=== PATIENT | male | born 1960 | race Caucasian/White ===

== ENCOUNTER → 2020-05-20 13:54 | Outpatient (CLI) | payer OTHER, SELFPAY ==
--- NOTE | 2020-05-20 | DI.MG.S_ITS ---
MALE BILATERAL DIGITAL DIAGNOSTIC MAMMOGRAM 3D/2D: 05/20/2020 CLINICAL: Mastalgia. No prior exams were available for comparison. There is asymmetric mild gynecomastia in the left breast. No significant masses, calcifications, or other findings are seen in either breast. Specifically, no other finding to correspond to the patient's 12:00 palpable abnormality. IMPRESSION: INCOMPLETE: NEEDS ADDITIONAL IMAGING EVALUATION There is mildly asymmetric left breast gynecomastia. No other abnormality seen in the left breast to correspond with the palpable abnormality and pain at 12 o'clock. Ultrasound recommended for verification. This was performed immediately following this exam. This exam was interpreted at Station ID: [id number]. NOTE: For mammograms, a report in lay terms will be sent to the patient. Approximately 15% of breast malignancies will not be visualized mammographically. In the management of a palpable breast mass, a negative mammogram must not discourage biopsy of a clinically suspicious lesion. Electronically Signed By: Eliza bull/:05/20/2020 14:48:36 ACR BI-RADS Category 0: Incomplete [id number]
--- NOTE | 2020-05-20 | DI.US.S_ITS ---
ULTRASOUND OF LEFT BREAST: 05/20/2020 CLINICAL: Palpable left breast lump. Comparison is made to exam dated: 05/20/2020 [facility]. Color flow and real-time ultrasound of the left breast were performed. Alatorre scale images of the real-time examination were reviewed. There is gynecomastia in the left breast in the sub-areolar depth that correlates with palpable area. No other suspicious sonographic findings. IMPRESSION: BENIGN There is no sonographic evidence of malignancy. The area of gynecomastia on ultrasound correlates with palpable area and mammographic finding. Clinical follow up only. Findings and recommendations were conveyed to the patient at time of exam. This exam was interpreted at Station ID: [id number]. Electronically Signed By: Eliza bull/:05/20/2020 15:03:40 copy to: Shayna Granados copy to: Nelda Sue letter sent: Normal Exam Ultrasound BI-RADS: 2 Benign
== END ==
PROVIDERS: PCP Physician Assistant Medical; Referring Provider Family Medicine; Visit Provider Family Medicine
DX: N64.4 Mastodynia (principal); N62 Hypertrophy of breast
CPT/HCPCS: 76642; 77066; G0279

== ENCOUNTER 2020-11-19 12:07 | Emergency (ER) | payer OTHER, SELFPAY ==
[2020-11-19] VITALS (8 sets, daily range): BP systolic 103–118; BP diastolic 65–70; PULSE 63–68; RESP 18–23; TEMP 36.5; O2SAT 93–100; BMI 29.2
--- NOTE | 2020-11-19 12:19 | DI.RAD.S_ITS ---
PROCEDURE: XR PELVIS 1-2V INDICATIONS: pain fall TECHNIQUE: 1 view(s) of the pelvis acquired. COMPARISON: None. FINDINGS: Bones: There is a displaced fracture along the medial acetabulum extending to the superior left pubic ramus. Small lucencies are noted along the medial aspect of the humeral head. Soft tissues: Visualized bowel gas pattern is normal. No suspicious soft tissue calcifications. IMPRESSION: 1. Displaced medial acetabular fracture extending to the left superior pubic ramus. 2. Ill-defined horizontal lucencies at the medial femoral head suspicious for fracture. CT is recommended for further evaluation. Dictated by: Dotty Peña M.D. on 11/19/2020 at 12:46 Approved by: Dotty Peña M.D. on 11/19/2020 at 12:47
--- NOTE | 2020-11-19 12:21 | ED.LOWEXIN ---
HPI - Extremity Injury (Lower) General Chief Complaint: Fall Stated Complaint: Fall while rollerblading,left hip pain Time Seen by Provider: 11/19/20 12:19 Source: EMS Mode of arrival: EMS Limitations: no limitations History of Present Illness HPI Narrative: Patient is a 61-year-old male with left hip pain after rollerblading accident. He said he got new rollerblades and fell down landed on the left. Quite painful to move. He was wearing helmet he did not hit his head no neck pain. MD complaint: hip injury Onset (ago): minute(s) Related Data Home Medications Medication Instructions Recorded Confirmed omeprazole 20 mg PO DAILY 11/19/20 11/19/20 tadalafil [Cialis] 20 mg PO DAILY PRN 11/19/20 11/19/20 tocilizumab [Actemra ACTPen] 162 mg SUBCUT QWEEK 11/19/20 11/19/20 Allergies Allergy/AdvReac Type Severity Reaction Status Date / Time No Known Drug Allergies Allergy Verified 11/19/20 12:35 Review of Systems Review of Systems Narrative: GENERAL: Denies chills,fever HEENT: Denies throat pain RESPIRATORY: Denies dyspnea, cough, wheezing CARDIOVASCULAR: Denies chest pain, palpitations GASTROINTESTINAL: Denies nausea, vomiting MUSCULOSKELETAL: See HPI SKIN: No rash, no laceration, no pruritus NEUROLOGIC: Denies weakness, dizziness, headache, numbness 8 point review of systems is negative except for those stated above and HPI Patient History Social History Smoking Status: Never smoker Smoking Status: Never smoker alcohol intake frequency: 3 or more drinks per day Substance Use Type: does not use Exam Initial Vital Signs Initial Vital Signs: Vital Signs Temperature 97.7 F 11/19/20 12:17 Pulse Rate 66 11/19/20 12:17 Respiratory Rate 18 11/19/20 12:17 Blood Pressure 118/70 11/19/20 12:17 Pulse Oximetry 93 11/19/20 12:17 GENERAL: Alert well-appearing 61-year-old male CARDIOVASCULAR: Regular rate and rhythm peripheral pulses in tact, cap refill <2 sec RESPIRATORY: Clear bilaterally No respiratory distress, speaks in full sentences without difficulty EXTREMITIES: Normal range of motion, no clubbing or edema. Neurovascularly intact Tender right hip legs are of equal length distal pedal pulse intact able to bend knee pain with rotation NEUROLOGICAL: Cranial nerves II through XII grossly intact. Normal gait and speech. SKIN: Warm, dry, no petechiae, no rashes or lesions. Course Orders Ordered: ED Orders 11/19/20 12:19 XR hip w pel if done LT 2V Stat 11/19/20 12:36 CT pelvis wo con Stat 11/19/20 13:04 COVID19 -Nasal swab/Pre-Proc Stat Discontinued Medications Ketorolac Tromethamine (Ketorolac 30 Mg/Ml Vial) 30 mg IV NOW ONE Stop: 11/19/20 12:20 Last Admin: 11/19/20 12:27 Dose: 30 mg Documented by: RICKIE Morphine Sulfate (Morphine 4 Mg/Ml Inj) 4 mg IV NOW ONE Stop: 11/19/20 12:37 Last Admin: 11/19/20 12:41 Dose: 4 mg Documented by: RICKIE Morphine Sulfate (Morphine 4 Mg/Ml Inj) 4 mg IV NOW ONE Stop: 11/19/20 14:42 Last Admin: 11/19/20 14:46 Dose: 4 mg Documented by: RICKIE Vital Signs Vital signs: Vital Signs - 8 hr 11/19/20 12:17 11/19/20 13:05 11/19/20 13:08 Temperature 97.7 F Pulse Rate 66 68 67 Respiratory Rate 18 18 Blood Pressure 118/70 110/65 Pulse Oximetry 93 98 96 11/19/20 13:09 11/19/20 13:30 11/19/20 14:00 Temperature Pulse Rate 63 64 Respiratory Rate 19 18 Blood Pressure 110/65 112/70 110/67 Pulse Oximetry 95 100 11/19/20 14:30 11/19/20 14:53 Temperature 97.7 F Pulse Rate 64 Respiratory Rate 23 Blood Pressure 103/65 Pulse Oximetry 100 MDM - Extremity Injury (Lower) Lab Data Labs: Lab Results 11/19/20 Range/Units 13:04 SARS-CoV-2 (PCR) Negative (Negative) Imaging Data Extremity x-ray #1: Radiologist's Impression: PROCEDURE: XR PELVIS 1-2V INDICATIONS: pain fall TECHNIQUE: 1 view(s) of the pelvis acquired. COMPARISON: None. FINDINGS: Bones: There is a displaced fracture along the medial acetabulum extending to the superior left pubic ramus. Small lucencies are noted along the medial aspect of the humeral head. Soft tissues: Visualized bowel gas pattern is normal. No suspicious soft tissue calcifications. IMPRESSION: 1. Displaced medial acetabular fracture extending to the left superior pubic ramus. 2. Ill-defined horizontal lucencies at the medial femoral head suspicious for fracture. CT is recommended for further evaluation. Dictated by: Dotty Peña M.D. on 11/19/2020 at 12:46 CT scan - abdomen/pelvis: Radiologist's Impression: PROCEDURE: CT PEL WO CON INDICATIONS: Acetabular fracture TECHNIQUE: Noncontrast 3 mm axial sections acquired through the bony pelvis, with coronal and sagittal reformatting. COMPARISON: None. FINDINGS: Image quality: Excellent. Bones: There is a mildly displaced fracture within the midportion of the left iliac bone. Comminuted fracture extends into the medial acetabulum. In addition, there is a comminuted fracture along the lateral aspect of the superior pubic ramus. Fracture lucencies also extend into the acetabular roof, as well as intra=articular extension. Fracture also extends to the lateral acetablulum. There is no distinct femoral head or neck fracture. Soft tissues: There is extensive soft tissue density in the retroperitoneal space of the lower abdomen extending to the pelvis. The largest confluent area measures approximately 8.7 cm AP x 6.6 cm transverse x 8.4 cm craniocaudal, Hounsfield units 51. Additional areas of streaky low-attenuation are present both superior and inferior to this larger focus, as well as anteriorly immediately posterior to the rectus musculature. There is [id number] displacement of the bladder secondary to mass effect. No hyperdensity is identified to suggest active vascular extravasation. IMPRESSION: 1. Comminuted fracture within the aspect of the left iliac bone, extending into the medial and lateral acetabulum as well as acetabular roof and intra-articular region, with comminuted fracture lucencies. Comminuted fracture also extends into the mid and lateral aspect of the superior pubic ramus. Femoral head appears intact without demonstrated wall fracture 2. Prominent soft tissue density within the left lower abdomen extending to the pelvis with Hounsfield units consistent with hemorrhage. Overall appearance is most suggestive of hematoma. It is noted that there is [id number] midline shift of the pelvis secondary to mass effect. Dictated by: Dotty Peña M.D. on 11/19/2020 at 12:58 MDM Narrative Medical decision making narrative: [place] Dr. Myers ED physician updated patient's symptoms test results happily accepts patient for transfer Discharge Plan Departure Patient Disposition: [facility] Clinical Impression: Acetabulum fracture, left Prescriptions: No Action omeprazole 20 mg capsule,delayed release(DR/EC) 20 mg PO DAILY RF: 0 tadalafil [Cialis] 20 mg Tablet 20 mg PO DAILY PRN (Reason: Erectile Dysfunction) RF: 0 Actemra ACTPen 162 mg/0.9 mL Pen Injector 162 mg SUBCUT QWEEK RF: 0 Referrals: Shayna Granados PA-C [Primary Care Provider] -
[2020-11-19] MEDS: KETOROLAC 30 MG/ML VIAL IV (12:27)
--- NOTE | 2020-11-19 12:36 | DI.CT.S_ITS ---
PROCEDURE: CT PEL WO CON INDICATIONS: Acetabular fracture TECHNIQUE: Noncontrast 3 mm axial sections acquired through the bony pelvis, with coronal and sagittal reformatting. COMPARISON: None. FINDINGS: Image quality: Excellent. Bones: There is a mildly displaced fracture within the midportion of the left iliac bone. Comminuted fracture extends into the medial acetabulum. In addition, there is a comminuted fracture along the lateral aspect of the superior pubic ramus. Fracture lucencies also extend into the acetabular roof, as well as intra=articular extension. Fracture also extends to the lateral acetablulum. There is no distinct femoral head or neck fracture. Soft tissues: There is extensive soft tissue density in the retroperitoneal space of the lower abdomen extending to the pelvis. The largest confluent area measures approximately 8.7 cm AP x 6.6 cm transverse x 8.4 cm craniocaudal, Hounsfield units 51. Additional areas of streaky low-attenuation are present both superior and inferior to this larger focus, as well as anteriorly immediately posterior to the rectus musculature. There is [id number] displacement of the bladder secondary to mass effect. No hyperdensity is identified to suggest active vascular extravasation. IMPRESSION: 1. Comminuted fracture within the aspect of the left iliac bone, extending into the medial and lateral acetabulum as well as acetabular roof and intra-articular region, with comminuted fracture lucencies. Comminuted fracture also extends into the mid and lateral aspect of the superior pubic ramus. Femoral head appears intact without demonstrated wall fracture 2. Prominent soft tissue density within the left lower abdomen extending to the pelvis with Hounsfield units consistent with hemorrhage. Overall appearance is most suggestive of hematoma. It is noted that there is [id number] midline shift of the pelvis secondary to mass effect. Dictated by: Dotty Peña M.D. on 11/19/2020 at 12:58 Approved by: Dotty Peña M.D. on 11/19/2020 at 13:12
[2020-11-19] MEDS: MORPHINE 4 MG/ML INJ IV ×2 (12:41→14:46)
[2020-11-19 13:41] LABS: COVID19 -Nasal RAPID Negative (Negative)
== END 2020-11-19 14:53 | disposition short-term general hospital (02) ==
PROVIDERS: Emergency Provider Emergency Medicine; PCP Physician Assistant Medical
DX: S32.402A Unspecified fracture of left acetabulum, initial encounter for closed fracture (principal); V00.121A Fall from non-in-line roller-skates, initial encounter
CPT/HCPCS: 72192; 73502; 87635; 96374; 96375; 96376; 99284; C9803; J1885; J2270